=== PATIENT | female | born 1975 | race Caucasian/White ===

== ENCOUNTER → 2017-05-06 | Outpatient (CLI) | payer BC, OTHER ==
[~2017-05-06] MED LIST: CANA300T PO; CETI10TA16 PO; ESCITALOPRAM OX10 MG PO; IOHEXOL 240 MG/ML 50ML VIAL. PO ONE; IOHEXOL 300 MG/ML 100ML VIAL. IV ONE; NORE-69 PO
--- NOTE | 2017-05-06 10:09 | KCIC ---
PQRS Compliance Statement: One or more of the following individualized dose reduction techniques were utilized for this examination: 1. Automated exposure control 2. Adjustment of the mA and/or kV according to patient size 3. Use of iterative reconstruction technique CT ABD PELV W/ORAL IV CONTRAST Clinical Indication: Diarrhea, bloating, pelvic pain x1 year. Comparison: None. Technique: Helical CT imaging of the abdomen and pelvis is performed after 100 cc Omnipaque 300 IV contrast. Oral contrast also given. Findings: There is a noncalcified 6 mm nodule in the anterior right lower lobe, image 4. Lung bases otherwise clear. Cardiac size normal. Liver, gallbladder, spleen, pancreas, adrenal glands, abdominal aorta, and kidneys are normal. Stomach unremarkable. No dilated small bowel. Oral contrast reaches the colon indicating there is no bowel obstruction. There is no colon wall thickening. The appendix is normal. There are several nonpathologically enlarged but upper limits of normal in size mesenteric and pericecal lymph nodes. There is left ovary functional cyst measuring up to 3.2 cm. Uterus unremarkable. No pelvic free fluid. The urinary bladder is normal. 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 Mild degenerative spondylosis of L4/L5. IMPRESSION: 1. No acute abdominal or pelvic abnormality. 2. There is left ovary functional cyst. No pelvic free fluid. Findings likely physiologic. 3. There is a 6 mm noncalcified nodule in the right lower lobe. Recommend noncontrast CT chest follow-up in 6-12 months per Fleischner Society guidelines. Electronically signed by: Oli Kam MD (05/06/2017 10:06 AM) [id number]
== END | disposition home or self-care (01) ==
LOC: KCIC CT 07:58
PROVIDERS: ATTEND Internal Medicine Gastroenterology
DX: N83.202 Unspecified ovarian cyst, left side (principal); R91.1 Solitary pulmonary nodule; R19.7 Diarrhea, unspecified
CPT/HCPCS: 74177; 82565; Q9966; Q9967

== ENCOUNTER → 2017-05-28 | Day surgery (SDC) | payer BC, OTHER ==
[~2017-05-28] MED LIST changes: -CANA300T PO; -CETI10TA16 PO; -ESCITALOPRAM OX10 MG PO; -IOHEXOL 240 MG/ML 50ML VIAL. PO ONE; -IOHEXOL 300 MG/ML 100ML VIAL. IV ONE; +LIDOCAINE 2% PF Vial for OR 5 ML VIAL.; -NORE-69 PO; +PROPOFOL 60 ML IV; +SODIUM PHOSPHATES 19/7GM 133 ML ENEMA.; +SODIUM PHOSPHATES 19/7GM 133 ML ENEMA. PR
[2017-05-28 08:59] LABS: POC GLUCOSE 107 mg/dL (70-99)
[2017-05-28] MEDS: IV RINGERS,LACTATED 1000ML 1,000 ML IV (09:13)
[2017-05-28 13:05] LABS: NEG OBC UR NEG; POS OBC UR POS
== END | disposition home or self-care (01) ==
LOC: SURG 08:13
DX: K64.0 First degree hemorrhoids (principal); K21.0 Gastro-esophageal reflux disease with esophagitis; K29.50 Unspecified chronic gastritis without bleeding; K52.9 Noninfective gastroenteritis and colitis, unspecified; K62.89 Other specified diseases of anus and rectum; K63.89 Other specified diseases of intestine; E11.9 Type 2 diabetes mellitus without complications; F41.9 Anxiety disorder, unspecified; Z79.899 Other long term (current) drug therapy; G47.33 Obstructive sleep apnea (adult) (pediatric); Z72.89 Other problems related to lifestyle; Z98.890 Other specified postprocedural states
CPT/HCPCS: 43239; 81025; 82962; 88305; 88342; J2704

== ENCOUNTER → 2017-10-19 | Outpatient (CLI) | payer BC, OTHER | END | disposition home or self-care (01) | LOC: KCIC CT 15:17 | DX: R91.1 Solitary pulmonary nodule (principal) | CPT/HCPCS: 71250 ==

== ENCOUNTER → 2018-04-19 | Outpatient (CLI) | payer BC, OTHER ==
[2017-05-28 10:03] VITALS: BP 104/54
[~2018-04-19] MED LIST changes: +CANA300T PO; +CETI10TA16 PO; +ESCITALOPRAM OX10 MG PO; -LIDOCAINE 2% PF Vial for OR 5 ML VIAL.; +NORE-69 PO; -PROPOFOL 60 ML IV; -SODIUM PHOSPHATES 19/7GM 133 ML ENEMA.; -SODIUM PHOSPHATES 19/7GM 133 ML ENEMA. PR
--- NOTE | 2018-04-19 17:31 | KCIC ---
Bilateral digital screening mammograms: Reason for examination: Routine screening. Comparison is made to previous study dated 06/29/2015. Interpretation was made with the benefit of CAD. The skin and nipples show no abnormalities. No abnormal axillary lymph nodes are seen. The breast parenchyma shows scattered fibroglandular density. (Breast density: Category B.) There are no dominant masses, suspicious calcifications or architectural distortions. Impression: No evidence of malignancy. Recommend routine screening. BI-RADS Category 1: Negative. "Our facility is accredited by the [employer] Mammography Program." This patient's information has been entered into a reminder system for the patient to be notified with the results of her examination and a target date for the next mammogram. Electronically signed by: Lorena Obrien MD (04/19/2018 5:27 PM) [id number]
== END | disposition home or self-care (01) ==
LOC: KCIC MAMMO 16:10
PROVIDERS: ATTEND Internal Medicine
DX: Z12.31 Encounter for screening mammogram for malignant neoplasm of breast (principal)
CPT/HCPCS: 77067

== ENCOUNTER → 2019-04-25 | Outpatient (CLI) | payer BC ==
[2017-05-28 10:03] VITALS: BP 104/54
--- NOTE | 2019-04-25 19:05 | KCIC ---
Bilateral digital screening mammograms with 3-D tomosynthesis: Reason for examination: Routine screening. Comparison is made to previous studies dated 04/19/2018 and 06/29/2015. Bilateral mammograms in CC and oblique projections were obtained with 2-D imaging and 3-D tomosynthesis imaging on a [employer] Inspiration unit and reviewed on the workstation. Interpretation was made with the benefit of CAD. The skin and nipples show no abnormalities. No abnormal axillary lymph nodes are seen. The breast parenchyma is predominantly fatty. (Breast density: Category A.) There continues to be a small nodular parenchymal density at the 10:00 position anteriorly in the right breast which is stable. There are no new dominant masses, suspicious calcifications or architectural distortion. Impression: No evidence of malignancy. Recommend routine screening. BI-RAD Category 2: Benign. "Our facility is accredited by the [employer] Mammography [employer]." This patient's information has been entered into a reminder system for the patient to be notified with the results of her examination and a target date for the next mammogram. Electronically signed by: Lorena Obrien MD (04/25/2019 7:02 PM) [id number]
== END | disposition home or self-care (01) ==
LOC: KCIC MAMMO 15:59
PROVIDERS: ATTEND Nurse Practitioner Family
DX: Z12.31 Encounter for screening mammogram for malignant neoplasm of breast (principal)
CPT/HCPCS: 77063; 77067

== ENCOUNTER → 2019-07-06 | Outpatient (CLI) | payer BC ==
[2017-05-28 10:03] VITALS: BP 104/54
--- NOTE | 2019-07-07 12:57 | KCIC ---
EXAM: CT OF THE CHEST WITHOUT CONTRAST. HISTORY: Lung nodule follow-up. TECHNIQUE: Computed tomography of the chest was performed without intravenous contrast. One or more of the following individualized dose reduction techniques were utilized for this examination: 1. Automated exposure control. 2. Adjustment of the mA and/or kV according to patient size. 3. Use of iterative reconstruction technique. COMPARISON: 10/19/2017, 05/06/2017. FINDINGS: Images of the upper abdomen reveal no acute abnormality. Bone windows reveal no suspicious lesions. There are no pathologically enlarged mediastinal or axillary lymph nodes. There is no pleural or pericardial effusion. The heart is not enlarged. A smooth oval nodule in the right lower lobe just posterior to the right major fissure measures 10 x 9 mm as compared with 9 x 7 mm previously. It measured 8 mm in greatest dimension and 2017. No other nodules are identified. IMPRESSION: 1. The right lower lobe nodule has smooth borders and has increased in size slowly since 2017. This favors benignity, but ongoing follow-up is recommended. Electronically signed by: Bhaskar Guy MD (07/07/2019 12:54 PM) [facility]
== END | disposition home or self-care (01) ==
LOC: KCIC CT 14:30
PROVIDERS: ATTEND Internal Medicine
DX: R91.1 Solitary pulmonary nodule (principal); E11.9 Type 2 diabetes mellitus without complications
CPT/HCPCS: 71250

== ENCOUNTER → 2020-12-13 | Outpatient (CLI) | payer BC ==
[2017-05-28 10:03] VITALS: BP 104/54
--- NOTE | 2020-12-13 13:42 | KCIC ---
MRI of the lumbar spine without contrast 12/13/2020 CLINICAL HISTORY: Chronic low back pain. New acute low back pain which radiates down both legs. TECHNIQUE: Unenhanced T1-weighted and T2-weighted sagittal and axial and inversion recovery sagittal images of the lumbar spine were obtained. FINDINGS: Minimal S-shaped curvature of the thoracolumbar spine is seen. Degenerative signal changes are seen involving the L3-4, L4-5 and L5-S1 discs. Degenerative signal changes are seen within the ma rrow surrounding these discs. Loss of height of the L4-5 and L5-S1 discs is noted. The conus medullar is is normal morphology, position, and signal characteristics. At the L1-2 and L2-3 disc spaces there are minimal generalized disc bulges. Degenerative changes are seen involving the facet joints bilaterally. These findings do not result in significant central spin al canal or neural foraminal stenosis. At the L3-4 disc space there is a mild generalized disc bulge. Degenerative changes are seen involvin g the facet joints bilaterally. There is mild ligamentum flavum hypertrophy bilaterally. There is pro minence of the posterior epidural fat. These findings when combined result in mild central spinal can al stenosis. No neural foraminal stenosis is seen. At the L4-5 disc space there is a mild generalized disc bulge. Superimposed on this disc bulge is a c entral/left paracentral focal disc protrusion. This measures 3 mm in AP diameter. Degenerative change s are seen involving the facet joints bilaterally. There is moderate ligamentum flavum hypertrophy bi laterally. These findings when combined result in mild central spinal canal stenosis. No neural arielle inal stenosis is seen. At the L5-S1 disc space there is a mild generalized disc bulge. This is eccentric to the left. Superi mposed on the disc bulge is a central/left paracentral focal disc protrusion. This measures 3 mm in A P diameter. Degenerative changes are seen involving the facet joints bilaterally. There is mild ligam entum flavum hypertrophy bilaterally. These findings when combined result in mild left greater the right central spinal canal stenosis. No neural foraminal stenosis is seen. IMPRESSION: The changes of degenerative disc disease are seen throughout the lumbar spine. These find ings result in mild central spinal canal stenosis at L3-4 and L4-5. Mild left greater than right cent ral spinal canal stenosis is seen at L5-S1. No neural foraminal stenosis is seen. Electronically signed by: Seth Batista MD (12/13/2020 1:40 PM) [id number]
== END ==
LOC: KCIC MRI 09:55
PROVIDERS: ATTEND Chiropractor
DX: M47.817 Spondylosis without myelopathy or radiculopathy, lumbosacral region (principal); M51.27 Other intervertebral disc displacement, lumbosacral region; M43.8X5 Other specified deforming dorsopathies, thoracolumbar region; M48.07 Spinal stenosis, lumbosacral region
CPT/HCPCS: 72148

== ENCOUNTER → 2020-12-20 | Outpatient (CLI) | payer BC ==
[2017-05-28 10:03] VITALS: BP 104/54
--- NOTE | 2020-12-20 14:06 | KCIC ---
Bilateral digital screening mammograms with 3-D tomosynthesis: Reason for examination: Routine screening. Comparison is made to previous studies dated back to 06/29/2015. Bilateral mammograms in CC and oblique projections were obtained with 2-D imaging and 3-D tomosynthes is imaging on a [employer] Inspiration unit and reviewed on the workstation. Interpretation was made with the benefit of CAD. The skin and nipples show no abnormalities. No abnormal axillary lymph nodes are seen. The breast par enchyma is predominantly fatty. (Breast density: Category A.) There continue to be several small circ umscribed nodules in the anterior lateral right breast which has remained stable. There are no new do minant masses, suspicious calcifications or architectural distortion. Impression: No evidence of malignancy. Recommend routine screening. BI-RAD Category 2: Benign. "Our facility is accredited by the [employer] Mammography [employer]." This patient's information has been entered into a reminder system for the patient to be notified wit h the results of her examination and a target date for the next mammogram. Electronically signed by: Lorena Obrien MD (12/20/2020 2:03 PM) [id number]
== END ==
LOC: KCIC MAMMO 10:00
PROVIDERS: ATTEND Nurse Practitioner Family
DX: Z12.31 Encounter for screening mammogram for malignant neoplasm of breast (principal)
CPT/HCPCS: 77063; 77067